=== PATIENT | female | born 1990 | race Caucasian/White ===

== ENCOUNTER 2024-05-06 05:08 | Emergency (ER) | payer OTHER ==
[2024-05-06 05:16] VITALS: BP 118/83; PULSE 61; RESP 16; TEMP 97.3; BMI 33.6
[2024-05-06 06:17] LABS: HEMATOCRIT 41.6 % (32.4-45.2); HEMOGLOBIN 14.1 GM/dL (10.7-15.3); MCH 28.3 pg (25.7-33.7); MCHC 33.8 g/dl (32.0-36.0); MEAN CELL VOLUME 83.8 fl (80-96); MEAN PLT VOLUME 8.4 fl (7.5-11.1); PLATELET COUNT 373 10^3/uL (134-434); RBC 4.97 M/mm3 (3.60-5.2); RDW 13.5 % (11.6-15.6); WHITE BLOOD COUNT 9.2 K/mm3 (4.0-10.0)
[2024-05-06 06:18] LABS: URINE APPEARANCE CLEAR; URINE BILIRUBIN NEGATIVE (NEGATIVE); URINE COLOR YELLOW; URINE GLUCOSE (UA) NEGATIVE (NEGATIVE); URINE KETONE NEGATIVE (NEGATIVE); URINE LEUK ESTERASE NEGATIVE (NEGATIVE); URINE NITRITE NEGATIVE (NEGATIVE); URINE PROTEIN NEGATIVE (NEGATIVE)
[2024-05-06 06:35] LABS: POTASSIUM 4.2 mmol/L (3.5-5.1)
[2024-05-06 06:37] LABS: CALCIUM 8.6 mg/dL (8.5-10.1)
[2024-05-06 06:38] LABS: ALBUMIN 3.8 g/dl (3.4-5.0); BLOOD UREA NITROGEN 10.9 mg/dL (7-18)
[2024-05-06 06:41] LABS: CREATININE 0.8 mg/dL (0.55-1.3)
[2024-05-06 06:42] LABS: TOT PROT 6.9 g/dl (6.4-8.2)
[2024-05-06 06:43] LABS: BILIRUBIN,TOTAL 0.2 mg/dL (0.2-1)
[2024-05-06] MEDS ORDERED: predniSONE 20 MG TABLET (UD) ONE (06:44)
[2024-05-06] MEDS: predniSONE 20 MG TABLET (UD) PO ONE (06:46)
== END 2024-05-06 09:57 | disposition home or self-care (01) ==
LOC: FER 05:08
DX: K59.00 Constipation, unspecified (principal); L27.0 Generalized skin eruption due to drugs and medicaments taken internally; T39.395A Adverse effect of other nonsteroidal anti-inflammatory drugs [NSAID], initial encounter; R10.9 Unspecified abdominal pain
CPT/HCPCS: 36415; 74176-TC; 80053; 81003; 81025; 85027; 99284-25